=== PATIENT | male | born 1940 ===

== ENCOUNTER 2018-08-14 19:26 | Inpatient (IN) | payer OTHER ==
[~2018-08-14] VITALS: Ht 170.2 cm; Wt 70.3 kg
[2018-08-14] MEDS ORDERED: ELIQUIS5 MG PO (20:29)
[2018-08-14] MEDS ORDERED: GLIPIZIDE XL2.5 MG PO (20:29)
[2018-08-14] MEDS ORDERED: HYDROCHLOROTHIA25 MG PO (20:30)
[2018-08-14] MEDS ORDERED: OMEPRAZOLE10 MG PO (20:30)
[2018-08-14] MEDS ORDERED: GLUMETZA500 MG PO (20:31)
[2018-08-14] MEDS ORDERED: PRINIVIL20 MG PO (20:31)
[2018-08-14] MEDS ORDERED: ONGLYZA5 MG PO (20:32)
[2018-08-14] MEDS ORDERED: TOPROL XL50 M1 PO (20:32)
[2018-08-14] MEDS ORDERED: ZOCOR40 MG PO (20:33)
[2018-08-14] MEDS ORDERED: FISH OIL CONC1000 MG PO (20:33)
== END 2018-08-20 11:50 | disposition home or self-care (01) | DRG 310 ==
LOC: ER 19:26 → MEDI 08-15 09:14
PROVIDERS: ADMIT Internal Medicine
PROC: 4A12X4Z Monitoring of Cardiac Electrical Activity, External Approach (ICD-10-PCS; principal; 2018-08-15)
PROC: B246ZZZ Ultrasonography of Right and Left Heart (ICD-10-PCS; 2018-08-15)
PROC: BW21ZZZ Computerized Tomography (CT Scan) of Abdomen and Pelvis (ICD-10-PCS; 2018-08-15)
DX: I48.0 Paroxysmal atrial fibrillation (principal); E11.9 Type 2 diabetes mellitus without complications; K29.70 Gastritis, unspecified, without bleeding; I13.10 Hypertensive heart and chronic kidney disease without heart failure, with stage 1 through stage 4 chronic kidney disease, or unspecified chronic kidney disease; N18.9 Chronic kidney disease, unspecified

== ENCOUNTER 2022-10-23 19:56 | Inpatient (IN) | payer OTHER ==
[~2022-10-23] VITALS: Ht 167.6 cm; Wt 72.6 kg
[~2022-10-23 19:56] MED LIST: ELIQUIS5 MG PO; FISH OIL CONC1000 MG PO; GLIPIZIDE XL2.5 MG PO; GLUMETZA500 MG PO; HYDROCHLOROTHIA25 MG PO; OMEPRAZOLE10 MG PO; ONGLYZA5 MG PO; PRINIVIL20 MG PO; TOPROL XL50 M1 PO; ZOCOR40 MG PO
--- NOTE | 2022-10-23 20:41 | NUR ---
PACIENTE ALERTA Y ORIENTADO X 3. REFIERE DESDE EL MEDIO BALJINDER DOLOR ABDOMINAL, VOMITOS X 10 Y DIARREAS X 6
[2022-10-23] MEDS ORDERED: GLIMEPIRIDE2 MG (20:53)
[2022-10-23] MEDS ORDERED: CRESTOR40 MG PO (20:53)
[2022-10-23] MEDS ORDERED: NESINA25 MG (20:54)
[2022-10-23] MEDS ORDERED: HORIZANT300 MG (20:55)
[2022-10-23] MEDS ORDERED: GRALISE600 MG (20:56)
--- NOTE | 2022-10-23 21:17 | NUR ---
PTE MASCULINO ALERTA Y ORIENTADO EN L[place] ESFERAS ES EVALUADO POR . SE ORIENTA SOBRE ORDENES DE [place] REFIERE COMPRENDER. SE COLECTAN MUESTRAS DE LAB[facility]ATORIOS Y SE CANALIZA VENA BAJO MEDIDAS ASEPTICAS, BAJO MEDIDAS ASEPTICAS. SE ADMINISTRAN MEDICAMENTOS, BAJO MEDIDAS ASEPTICAS. PTE MANEJADO POR TALON MONTEZ.
--- NOTE | 2022-10-23 23:04 | NUR ---
SE RECIBE PACIENTE DEL TURNO ANTERIOR, EL MISMO SE ENCUENTRA EN JOHNNY CON BARANDAS ELEVADAS POR PRECAUCION A CAIDAS, AL MOMENTO PACIENTE SE ENCUENTRA ALERTA Y ORIENTADO X3, SE LE ORIENTA A PACIENTE SOBRE CONTINUIDAD DE [place] Y VERBALIZA ENTENDER, PACIENTE RECIBIENDO IV FLUIDS MONICA ORDEN CON VENOPUNCION PATENTE, DANYA DE EDEMA Y ERITEMA. PENDIENTE REEVALUACION MEDICA.
== END 2022-11-30 19:16 | DRG 414 ==
LOC: ER 19:56 → MEDI 23:57 → ICU 23:57 → SURH 11-24 17:41
PROVIDERS: Surgery; ADMIT Internal Medicine; ATTEND Internal Medicine
PROC: BW40ZZZ Ultrasonography of Abdomen (ICD-10-PCS; 2022-10-23)
PROC: BW211ZZ Computerized Tomography (CT Scan) of Abdomen and Pelvis using Low Osmolar Contrast (ICD-10-PCS; 2022-10-24)
PROC: B24BYZZ Ultrasonography of Heart with Aorta using Other Contrast (ICD-10-PCS; 2022-10-24)
PROC: 4A12X4Z Monitoring of Cardiac Electrical Activity, External Approach (ICD-10-PCS; 2022-10-25)
PROC: 0FT40ZZ Resection of Gallbladder, Open Approach (ICD-10-PCS; principal; 2022-10-31 16:00)
PROC: CF251ZZ Tomographic (Tomo) Nuclear Medicine Imaging of Liver using Technetium 99m (Tc-99m) (ICD-10-PCS; 2022-11-02)
PROC: 02HV33Z Insertion of Infusion Device into Superior Vena Cava, Percutaneous Approach (ICD-10-PCS; 2022-11-03)
PROC: B24BYZZ Ultrasonography of Heart with Aorta using Other Contrast (ICD-10-PCS; 2022-11-04)
PROC: B54DZZZ Ultrasonography of Bilateral Lower Extremity Veins (ICD-10-PCS; 2022-11-04)
PROC: BW21ZZZ Computerized Tomography (CT Scan) of Abdomen and Pelvis (ICD-10-PCS; 2022-11-06)
PROC: BW40ZZZ Ultrasonography of Abdomen (ICD-10-PCS; 2022-11-09)
PROC: 30233N1 Transfusion of Nonautologous Red Blood Cells into Peripheral Vein, Percutaneous Approach (ICD-10-PCS; 2022-11-11)
PROC: B44HZZZ Ultrasonography of Bilateral Lower Extremity Arteries (ICD-10-PCS; 2022-11-13)
PROC: BQ2SZZZ Computerized Tomography (CT Scan) of Left Lower Extremity (ICD-10-PCS; 2022-11-14)
PROC: 5A0945A Assistance with Respiratory Ventilation, 24-96 Consecutive Hours, High Flow/Velocity Cannula (ICD-10-PCS; 2022-11-15)
PROC: 0Y6D0Z3 Detachment at Left Upper Leg, Low, Open Approach (ICD-10-PCS; 2022-11-21)
DX: K80.00 Calculus of gallbladder with acute cholecystitis without obstruction (principal); A41.9 Sepsis, unspecified organism; L89.153 Pressure ulcer of sacral region, stage 3; K83.2 Perforation of bile duct; E11.52 Type 2 diabetes mellitus with diabetic peripheral angiopathy with gangrene; I96 Gangrene, not elsewhere classified; I74.3 Embolism and thrombosis of arteries of the lower extremities; I48.20 Chronic atrial fibrillation, unspecified; K91.89 Other postprocedural complications and disorders of digestive system; K56.7 Ileus, unspecified; N17.9 Acute kidney failure, unspecified; E11.65 Type 2 diabetes mellitus with hyperglycemia; R53.81 Other malaise; E11.40 Type 2 diabetes mellitus with diabetic neuropathy, unspecified; I12.9 Hypertensive chronic kidney disease with stage 1 through stage 4 chronic kidney disease, or unspecified chronic kidney disease; N18.9 Chronic kidney disease, unspecified; E78.5 Hyperlipidemia, unspecified; Z53.31 Laparoscopic surgical procedure converted to open procedure; Z95.1 Presence of aortocoronary bypass graft; Z79.01 Long term (current) use of anticoagulants; Z88.0 Allergy status to penicillin; Z85.46 Personal history of malignant neoplasm of prostate; Z79.84 Long term (current) use of oral hypoglycemic drugs
CPT/HCPCS: 71275; 73206

== ENCOUNTER 2023-01-30 14:09 | Inpatient (IN) | payer OTHER ==
[~2023-01-30] VITALS: Ht 170.2 cm; Wt 59.0 kg
[~2023-01-30 14:09] MED LIST changes: +CRESTOR40 MG PO; +GLIMEPIRIDE2 MG; +GRALISE600 MG; +HORIZANT300 MG; +NESINA25 MG
[2023-01-31] MEDS ORDERED: FOLIC ACID1 MG (08:27)
[2023-01-31] MEDS ORDERED: ROSUVASTATIN CA40 MG (08:28)
[2023-01-31] MEDS ORDERED: METFORMIN HCL1000 M3 (08:28)
[2023-01-31] MEDS ORDERED: SPIRONOLACTONE25 MG (08:28)
[2023-01-31] MEDS ORDERED: PANTOPRAZOLE SO40 MG (08:28)
[2023-01-31] MEDS ORDERED: VERAPAMIL HCL120 M3 (08:28)
[2023-01-31] MEDS ORDERED: OMEGA-3 ACID ETH1 GM (08:28)
== END 2023-02-06 18:42 | disposition home or self-care (01) | DRG 240 ==
LOC: SURH 14:09
PROVIDERS: Surgery; ADMIT Internal Medicine; ATTEND Internal Medicine
PROC: B24BZZZ Ultrasonography of Heart with Aorta (ICD-10-PCS; 2023-01-31)
PROC: 30233N1 Transfusion of Nonautologous Red Blood Cells into Peripheral Vein, Percutaneous Approach (ICD-10-PCS; 2023-02-01)
PROC: 0Y6F0ZZ Detachment at Right Knee Region, Open Approach (ICD-10-PCS; principal; 2023-02-02 14:00)
DX: E11.52 Type 2 diabetes mellitus with diabetic peripheral angiopathy with gangrene (principal); I70.261 Atherosclerosis of native arteries of extremities with gangrene, right leg; D64.9 Anemia, unspecified; Z79.4 Long term (current) use of insulin; Z20.822 Contact with and (suspected) exposure to COVID-19